=== PATIENT | female | born 1980 ===

== ENCOUNTER → 2016-10-26 | Day surgery (SDC) | payer OTHER ==
[2016-10-26] VITALS (10 sets, daily range): BP systolic 96–124; BP diastolic 59–79
[~2016-10-26] VITALS: Ht 160 cm; Wt 83.9 kg
[~2016-10-26] MED LIST: Albuterol 90mcg Inhaler 8gm INH ONE; Bupivacaine w/Epi 0.25% 30ml Vial INJ ONE; D5 1/2NS 1,000 ML IV SCH; Dexamethasone 4mg/ml vial ONE; DiphenhydrAMINE 50mg/ml Inj IVP PRN; EPINEPHrine 1mg/1ml Amp ONE; HYDROmorphone 1mg/ml Carpuject SUBQ PRN; Hydromorphone 0.5mg/0.5ml inj IVP PRN; Ketamine 500mg Inj ONE; LORazepam Inj 2mg/ml 1ml IV PRN; LR 1000ml 1,000 ML IVLG SCH; LR 1000ml ONE; Labetalol 5mg/ml 20ml vial IV PRN; Lidocaine 1% MPF 10mg/ml 5ml ONE; Metoclopramide 10mg/2ml Inj IVP PRN; Metoclopramide 10mg/2ml Inj ONE; Midazolam 2mg/2ml Inj IVP PRN; Midazolam 2mg/2ml Inj ONE; NAPROXEN SODIU550 M1 ORAL; Norco 5mg/325mg tab ORAL PRN; Propofol 10mg/ml 20ml IV ONE; Ropivacaine 5mg/ml Vial 20ml INJ ONE; Tylenol #3 tab (300mg/30mg) ORAL PRN; Zemuron 50mg/5ml Inj IV ONE; [UNRECOGNIZED DRUG - REMARK] PO; ceFAZolin 1gm in D5W 55ml IVP ONE; celeBREX 200mg Cap **SURGERY PATIENTS ONLY ORAL ONE; fentaNYL 100 mcg/2 mL IV PRN; fentaNYL 250mcg/5ml ONE; oxyCONTIN 20mg tab ORAL ONE
--- NOTE | 2016-10-26 08:17 | Pre-Procedure Note/Attestation ---
Pre-Procedure Note/Attestation Complete Prior to Procedure Planned Procedure: right Procedure Narrative: yesicader arthroscopy, possible rc repair, sad Indications for Procedure Pre-Operative Diagnosis: right shoulder rct, impingement, possible slap tear Attestation I attest that I discussed the nature of the procedure; its benefits; risks and complications; and alternatives (and the risks and benefits of such alternatives ), prior to the procedure, with the patient (or the patient's legal new accounts banking representative). I attest that, if there was a reasonable possibility of needing a blood transfusion, the patient (or the patient's legal new accounts banking representative) was given the [facility] standardized written summary, pursuant to the [place] Blood Safety Act ([place] Health and Safety Code # 1645, as amended). I attest that I re-evaluated the patient just prior to the surgery and that there has been no change in the patient's H&P, except as documented below: NARENDRA LEDESMA Oct 26, 2016 08:17
--- NOTE | 2016-10-26 08:18 | Operative Note - PDOC ---
Operative Note Operative Note Pre-op Diagnosis: right shoulder rct, impingement, Procedure: right shoulder arthroscopy, Post-op Diagnosis: same as pre-op plus Operative Findings: consistent w/pre-op dx studies Anesthesia: general Specimen: none Complications: none Condition: stable Estimated Blood Loss: none Implant(s) used?: No NARENDRA LEDESMA Oct 26, 2016 08:18
--- NOTE | 2016-10-26 14:36 | Anethesia Preoperative Eval ---
Anesthesia Pre-op PMH/ROS General Date of Evaluation: Oct 26, 2016 Anesthesiologist: Jorge Luis ASA Score: ASA 2 Mallampati Score Class I : Soft palate, uvula, fauces, pillars visible Class II: Soft palate, uvula, fauces visible Class III: Soft palate, base of uvula visible Class IV: Only hard plate visible Mallampati Classification: Class II Surgeon: Bakari Diagnosis: Right shoulder derangement Surgical Procedure: Right shoulder arthroscopy and subacromial decompression Anesthesia History: none Family History: no anesthesia problems Allergies: Coded Allergies: CORTISONE (Verified Allergy, Unknown, vomiting; breaks-out, 10/25/16) Medications: see eMAR Past Medical History Cardiovascular: Denies: CAD, HTN, NC, arrhythmia, other, valve dz Pulmonary: Reports: asthma, Denies: COPD, PAMELA, other Gastrointestinal/Genitourinary: Denies: CRI, ESRD, GERD, other Neurologic/Psychiatric: Reports: depression/anxiety, Denies: CVA, TIA, dementia, other Endocrine: Denies: DM, hypothyroidism, other, steroids HEENT: Denies: APACHE (L), APACHE (R), cataract (L), cataract (R), glaucoma, other Hematology/Immune: Denies: DVT, anemia, bleeding disorder, other Musculoskeletal/Integumentary: Denies: DDD, DJD, OA, RA, edema, other Other: obesity PSxH Narrative: Right wrist sx Anesthesia Pre-op Phys. Exam Physician Exam Last Vital Signs Date Time Temp Pulse Resp B/P Pulse Ox O2 Delivery O2 Flow Rate FiO2 10/26/16 11:33 98.1 79 20 124/72 99 Room Air Constitutional: NAD Cardiovascular: RRR Respiratory: CTA Airway Exam Mallampati Score: Class II MO: full ROM: full Teeth: intact Anesthesia Pre-op A/P Labs see chart Urine Test Test 10/26/16 11:00 Urine HCG, Qualitative Negative Risk Assessment & Plan Assessment: ASA II Plan: GA, Right interscalene nerve block Status Change Before Surgery: No Pre-Antibiotics Drug: Ancef 2g Given Within 1 Hr of Incision: Yes Time Given: 14:05 ALBERTO ROMERO M.D. Oct 26, 2016 14:36
--- NOTE | 2016-10-26 14:37 | Immediate Post-Op Evaluation ---
Immediate Post-Op Evalulation Immediate Post-Op Evalulation Procedure: Right shoulder arthroscopy and subacromial decompression Date of Evaluation: Oct 26, 2016 Time of Evaluation: 15:13 IV Fluids: 600 Blood Products: 0 Estimated Blood Loss: 25 Urinary Output: 0 Blood Pressure Systolic: 120 Blood Pressure Diastolic: 79 Pulse Rate: 93 Respiratory Rate: 17 O2 Sat by Pulse Oximetry: 99 Temperature (Fahrenheit): 97.3 Pain Score (1-10): 0 Nausea: No Vomiting: No Complications 0 Patient Status: awake, reacts, patent, none Hydration Status: adequate Drug: Ancef 2g Given Within 1 Hr of Incision: Yes Time Given: 14:05 ALBERTO ROMERO M.D. Oct 26, 2016 14:37
--- NOTE | 2016-10-26 14:38 | 48 Hour Post Anesthesia Eval ---
Post Anesthesia Evaluation Procedure: Right shoulder arthroscopy and subacromial decompression Date of Evaluation: Oct 26, 2016 Time of Evaluation: 17:14 Blood Pressure Systolic: 139 0: 79 Pulse Rate: 93 Respiratory Rate: 17 Temperature (Fahrenheit): 97.9 O2 Sat by Pulse Oximetry: 96 Airway: patent Nausea: No Vomiting: No Pain Intensity: 2 Hydration Status: adequate Cardiopulmonary Status: at baseline Mental Status/LOC: patient returned to baseline Post-Anesthesia Complications: 0 Follow-up care needed: ready to discharge ALBERTO ROMERO M.D. Oct 26, 2016 14:38
--- NOTE | 2016-10-29 09:28 | Operative Note - Dictated ---
DATE OF OPERATION: 10/26/2016 PREOPERATIVE DIAGNOSES: 1. Right shoulder internal derangement. 2. Right shoulder possible traumatic bursitis/impingement syndrome. POSTOPERATIVE DIAGNOSIS: Right shoulder traumatic impingement syndrome/bursitis. PROCEDURES: 1. Right shoulder diagnostic arthroplasty. 2. Subacromial decompression. SURGEON: Kahlil Villegas M.D. ANESTHESIA: Interscalene general. INDICATION FOR PROCEDURE: The patient is a 36-year-old female with continued right shoulder pain. It was nonresponsive to she has elected to undergo right shoulder arthroscopy and possible subacromial decompression bursectomy. At the time of surgery, . Risks, limitations, expectations, and complications related to procedure were discussed in detail including continued pain, need for future surgery, risk of anesthesia, medical complications, DVT, PE, and mortality risk. DESCRIPTION OF PROCEDURE: After informed consent was obtained, the patient was brought to the operative room and placed supine under interscalene general anesthesia. The patient was then carefully placed in a beach chair position and . Right shoulder was prepped and draped in a sterile manner. At this point, a posterolateral stab incision was then made. Trocar was introduced into the glenohumeral joint. There is no significant chondral damage. The anterior labrum appeared to be intact along with the superior labrum. , rotator cuff looked intact. At this point, the camera was respositioned in the subacromial space showed hypertrophic bursal tissue. The resection was performed. Undersurface of the acromion was identified and acromioplasty was performed based on the lateral to medial and then completed from posterior to anterior. Once the bursectomy and acromioplasty was completed, the instruments were removed. Portal sites were closed with 3-0 Monocryl suture. Steri-Strips and a sterile dressing were applied. The patient was awoken and taken to recovery room with stable vital signs. EBL: Minimal. COMPLICATIONS: None. SPECIMENS: None. IMPLANTS: None. Kahlil Villegas M.D. DR: NAOMI JOB#: [id number] CC: SURYA
== END | disposition home or self-care (01) ==
LOC: SUR 08:38
DX: M75.41 Impingement syndrome of right shoulder (principal); M75.51 Bursitis of right shoulder; J45.909 Unspecified asthma, uncomplicated; F32.9 Major depressive disorder, single episode, unspecified; F41.9 Anxiety disorder, unspecified; E66.9 Obesity, unspecified; Z88.8 Allergy status to other drugs, medicaments and biological substances
CPT/HCPCS: 29822; 81025; J0171; J0690; J1100; J2250; J2405; J2704; J2765; J2795; J3010; J3490; J7120; 94003; 94150